=== PATIENT | female | born 1985 | race Caucasian/White ===

== ENCOUNTER 2017-05-10 17:58 | Emergency (ER) | payer MEDICAID ==
[~2017-05-10] VITALS: Ht 162.6 cm; Wt 62.5 kg
[2017-05-10 18:00] VITALS: BP 110/72
[2017-05-10 18:36] LABS: HEMATOCRIT 39.9 % (34.6-47.8); WHITE BLOOD COUNT 7.6 x10^3/uL (3.4-10)
[2017-05-10 18:49] LABS: BLOOD UREA NITROGEN 11 mg/dL (7-18)
[2017-05-10 18:53] LABS: ASPARTATE AMINO TRANSFERASE 19 U/L (15-37)
[2017-05-10 19:40] LABS: HCG UR OBC PASS
== END 2017-05-10 20:20 | disposition home or self-care (01) ==
LOC: ED 20:00
DX: K29.00 Acute gastritis without bleeding (principal); Z88.0 Allergy status to penicillin; K21.9 Gastro-esophageal reflux disease without esophagitis
CPT/HCPCS: 36415; 76700; 80053; 81003; 81025; 83690; 85025; 86677; 99285

== ENCOUNTER 2020-01-13 16:49 | Emergency (ER) | payer OTHER ==
[~2020-01-13 16:49] MED LIST: DOCU-131 PO; IBUP-1222 PO; NONE PER PT; OXYC-302 PO
[2020-01-13] MEDS ORDERED: ONDANSETRON 2MG/ML, 2ML ONE (17:07)
[2020-01-13] MEDS ORDERED: MORPHINE SULFATE 4 MG/ML, 1ML ONE (17:08)
[2020-01-13] MEDS ORDERED: ONDANSETRON 2MG/ML, 2ML IVPush ONE (17:30)
[2020-01-13] MEDS ORDERED: morphine SULFATE 10 MG/ML, 1ML IVPush ONE (17:30)
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
[2020-01-13 18:00] VITALS: BP 131/75
== END 2020-01-13 18:35 | disposition home or self-care (01) ==
LOC: ED 17:40
DX: S40.011A Contusion of right shoulder, initial encounter (principal); K21.9 Gastro-esophageal reflux disease without esophagitis; V89.2XXA Person injured in unspecified motor-vehicle accident, traffic, initial encounter; Y93.89 Activity, other specified; Y92.69 Other specified industrial and construction area as the place of occurrence of the external cause; Y99.0 Civilian activity done for income or pay
CPT/HCPCS: 29240; 73030; 96374; 96375; 99284; J2270; J2405